=== PATIENT | female | born 1975 | race Two or more races ===

== ENCOUNTER 2025-06-23 06:55 | Day surgery (SDC) | payer MEDICAID ==
[2025-06-19 14:35] LABS: Hematocrit 37.9 % (36.0-46.0); Hemoglobin 13.1 g/dL (12.2-16.2); Mean Corpuscular Hemoglobin 29.0 pg (28.0-32.0); Mean Corpuscular Volume 83.8 fL (80.0-100.0); Nucleated Red Blood Cells % 0.0 %
[2025-06-19 14:36] LABS: Urine Protein, UAD Negative (Negative)
[2025-06-19 14:47] LABS: INR 0.99 (0.9-1.15); Partial Thromboplastin Time 27.2 SEC (24.5-34.5); Prothrombin Time 10.5 sec (9.3-11.8)
[2025-06-19 15:08] LABS: Alanine Aminotransferase 24 U/L (7-40); Albumin 4.3 g/dL (3.2-4.8); Alkaline Phosphatase 79 U/L (46-116); Anion Gap 7 (5-15); BUN/Creatinine Ratio 25.8 (10.0-20.0); Bilirubin, Total 0.3 mg/dL (0.2-1.0); Blood Urea Nitrogen 17 mg/dL (9-23); Calcium 9.6 mg/dL (8.7-10.4); Carbon Dioxide 28 mmol/L (20-31); Chloride 107 mmol/L (98-107); Potassium 3.9 mmol/L (3.5-5.1); Sodium 142 mmol/L (136-145); Total Protein 6.3 g/dL (5.7-8.2)
[2025-06-19 15:14] LABS: Glucose 66 mg/dL (74-106)
[~2025-06-23] VITALS: Ht 157.5 cm; Wt 63.5 kg
[2025-06-23] MEDS ORDERED: ceFAZolin 1GM/50ML 50 ML IV ONE (07:04)
[2025-06-23] MEDS ORDERED: MIDAZOLAM HCL 2MG/2ML 2ml VIAL (1mg/ml) ONE (08:25)
[2025-06-23] MEDS ORDERED: KETAMINE 50mg/ML 1ml syringe ONE (08:25)
[2025-06-23] MEDS ORDERED: PROPOFOL 10 MG/ML 20 ML IV ONE (08:25)
[2025-06-23] MEDS ORDERED: KETOROLAC TROMETH 30 MG/ML 1ML VIAL ONE (08:25)
[2025-06-23] MEDS ORDERED: ONDANSETRON HCL 4 MG/2 ML VIAL ONE (08:25)
[2025-06-23] MEDS ORDERED: GLYCOPYRROLATE 0.2 MG/ML 1ML VIAL ONE (08:25)
[2025-06-23] MEDS: BUPIVACAINE W/ EPINEPH 0.5% MPF 30ML VIAL IJ ONE (09:24)
[2025-06-23 09:39] VITALS: PULSE 81; RESP 15; TEMP 97.1; O2SAT 100
[2025-06-23] MEDS ORDERED: ONDANSETRON HCL 4 MG/2 ML VIAL IV ONE (09:45)
--- NOTE | 2025-06-23 09:53 | DVHOP2 ---
Operative Report - 2 Report Details Date: 06/23/25 Preop Diagnosis: right buttock lipoma Postop Diagnosis: right buttock lipoma Surgeon: Dr. Manuela Moser Anesthesiologist: Dr. Lopez Anesthesia: Mac Consent: The patient was informed of the risks and benefits of the procedure. These include but are not limited to complications of anesthesia, postoperative infection, incomplete relief of symptoms, recurrence of symptoms, damage to blood vessels, nerves and tendons, deep venous thrombosis, pulmonary embolism and possible need for repeat surgery in the future. Name of Procedure Performed excision of right buttock mass Procedure Details Procedure Details: Under the supervision of Dr. Roy and under the adequate amount of anesthesia the patient was placed in a left lateral position. The are was prepped and draped in a sterile fashion. The area was infiltrated with 1:1 1% lidocaine and 0.25% Marcaine with EPI. An elliptical incision was made to excise the lipoma which was sent to pathology. The area was irrigated with Normal saline and closure was accomplished with 2-0 Monocryl sutures. Dermabond and steri strips were applied. All sponge ,needle and blade counts were correct. patient transferred to recovery without incident Condition Good Disposition Home ERMELINDA MOSER TALENT SCOUT Jun 23, 2025 09:53
[2025-06-23 10:40] VITALS: BP 116/63; PULSE 65; RESP 13; O2SAT 100
== END 2025-06-23 11:00 | disposition home or self-care (01) ==
LOC: SUR 06:55
PROVIDERS: ATTEND Surgery
DX: D17.1 Benign lipomatous neoplasm of skin and subcutaneous tissue of trunk (principal); Z88.5 Allergy status to narcotic agent; Z98.891 History of uterine scar from previous surgery; Z98.890 Other specified postprocedural states
CPT/HCPCS: 21930; 36415; 80053; 81001; 84702; 85025; 85610; 85730; 88305; J0690; J1885; J2250; J2405; J2704; J7120